=== PATIENT | female | born 1970 | race Caucasian/White ===

== ENCOUNTER 2017-11-16 22:51 | Emergency (ER) | payer OTHER ==
[~2017-11-16] VITALS: Ht 170.2 cm; Wt 115.2 kg
[2017-11-16 23:33] VITALS: Ht 170.2 cm; Wt 115.2 kg
[2017-11-17 01:26] VITALS: BP 154/88
== END 2017-11-17 01:26 | disposition home or self-care (01) ==
LOC: ED 22:51
DX: S60.031A Contusion of right middle finger without damage to nail, initial encounter (principal); X58.XXXA Exposure to other specified factors, initial encounter; Y93.89 Activity, other specified; Y92.89 Other specified places as the place of occurrence of the external cause; Y99.8 Other external cause status; Z88.0 Allergy status to penicillin
CPT/HCPCS: 90715

== ENCOUNTER 2017-11-21 09:40 | Emergency (ER) | payer OTHER ==
[~2017-11-21] VITALS: Ht 170.2 cm; Wt 113.1 kg
[2017-11-21 09:44] VITALS: BP 136/92; Ht 170.2 cm; Wt 113.1 kg
== END 2017-11-21 12:12 | disposition home or self-care (01) ==
LOC: ED 09:40
DX: S63.612A Unspecified sprain of right middle finger, initial encounter (principal); Z88.0 Allergy status to penicillin; W18.30XA Fall on same level, unspecified, initial encounter; Y93.89 Activity, other specified; Y92.89 Other specified places as the place of occurrence of the external cause; Y99.8 Other external cause status
CPT/HCPCS: A4570